=== PATIENT | male | born 1995 | race American Indian/Alaskan Native ===

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

== ENCOUNTER 2020-02-25 13:11 | Emergency (ER) | payer SELFPAY ==
[2020-02-25 13:20] VITALS: BP 113/75
--- NOTE | 2020-02-25 14:46 | XRay Report ---
Left ankle-3 views INDICATION: PAIN. COMPARISON: None. IMPRESSION: No acute osseous or soft tissue abnormality. Normal alignment. No significant DJD. Signer Name: Clarke Bro MD Signed: 02/25/2020 2:41 PM Workstation Name: [id number]
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
== END 2020-02-25 16:50 | disposition home or self-care (01) ==
LOC: ED 13:11
DX: S93.491A Sprain of other ligament of right ankle, initial encounter (principal); S90.31XA Contusion of right foot, initial encounter; X58.XXXA Exposure to other specified factors, initial encounter; Y93.89 Activity, other specified; Y92.89 Other specified places as the place of occurrence of the external cause; Y99.8 Other external cause status